=== PATIENT | female | born 1960 | race Caucasian/White ===

== ENCOUNTER 2017-10-05 07:01 | Day surgery (SDC) | END 2017-10-05 21:35 | disposition home or self-care (01) | DX: K57.30 Diverticulosis of large intestine without perforation or abscess without bleeding (principal); K64.8 Other hemorrhoids; Z86.010 Personal history of colon polyps | CPT/HCPCS: 45378; J2250; J3010; Z7610 ==

== ENCOUNTER 2019-04-13 07:28 | Day surgery (SDC) | payer OTHER ==
[2019-04-13] VITALS (16 sets, daily range): BP systolic 111–129; BP diastolic 68–77; PULSE 60–90; RESP 15–21; Ht 160 cm; Wt 79.8 kg
[~2019-04-13] VITALS: Ht 160 cm; Wt 79.8 kg
[~2019-04-13 07:28] MED LIST: CEFAZOLIN 2 GM/50 ML (PMX) 50 ML IVPB ONE; SOD CHLORIDE 0.9% 1,000 ML IV SCH
[2019-04-13] MEDS ORDERED: IBUP800T48 PO (08:40)
[2019-04-13] MEDS ORDERED: ASPI1TAB55 PO (08:40)
--- NOTE | 2019-04-13 10:14 | PREAC ---
Date/Time of Note Date/Time of Note DATE: 04/13/19 TIME: 10:13 Anesthesia Eval and Record Evaluation Time Pre-Procedure Interview DATE: 04/13/19 TIME: 10:13 Age 58 Sex female NPO: 8 hrs Preoperative diagnosis left upper chest mass Planned procedure excision left upper chest mass Past Medical History Past Medical History: Includes Endo: Other (thyroid nodules) Neuro: Other (migraines) GI: Obesity Surgery & Anesthesia Issues No known issue Meds Anticoagulation: No Beta Francine within 24 hr: No Reason Beta Francine not given: Pt. not on B-Francine Reported Medications Aspirin/Acetaminophen/Caffeine (MIGRAINE RELIEF CAPLET) 1 Each Tablet, 1 TAB PO DAILY PRN for PAIN, TAB 04/13/19 Ibuprofen* (Motrin*) 800 Mg Tab, 800 MG PO Q6H PRN for PAIN, TAB 04/13/19 Discontinued Reported Medications [None] No Conflict Check 07/01/15 Meds reviewed: Yes Allergies Coded Allergies: Sulfa (Sulfonamide Antibiotics) (Verified Allergy, Intermediate, RASH, 04/13/19) Allergies Reviewed: Yes Labs/Studies Labs Reviewed: Reviewed by anesthesiologist test: N/A Studies: ECG, CXR Pre-procedure Exam Last vitals Vital Signs Date Temp Pulse Resp B/P (MAP) Pulse Ox O2 O2 Flow FiO2 Time Delivery Rate 04/13/19 98.8 60 16 129/77 99 Room Air 08:43 (94) Airway: Adequate mouth opening, Adequate thyromental dist Mallampati: Mallampati II Teeth: Normal Lung: Normal Heart: Normal ASA Physical Status ASA physical status: 2 Emergency: None Planned Anesthetic General/MAC: ETT Planned Pain Management Parenteral pain med, Local by surgeon Pre-operative Attestations Prior to commencing anesthesia and surgery, the patient was re-evaluated, there was verification of: *The patient's identity *The results of appropriate recent lab work and preoperative vital signs *The above evaluation not changing prior to induction *Anesthetic plan, risk benefits, alternative and complications discussed with patient/family; questions answered; patient/family understands, accepts and wishes to proceed. AYDEN SANCHEZ April 13, 2019 10:14
[2019-04-13] MEDS ORDERED: LIDOCAINE 2% (SDV) 5 ML INJ ONE (10:20)
[2019-04-13] MEDS ORDERED: SUCCINYLCHOLINE CHLORIDE 100 MG/5 ML SYG IV ONE (10:20)
[2019-04-13] MEDS ORDERED: FENTAnyl 50 MCG/ML VIAL ONE (10:20)
[2019-04-13] MEDS ORDERED: CEFAZOLIN 1 GM INJ ONE (10:20)
[2019-04-13] MEDS ORDERED: FAMOTIDINE 20 MG INJ ONE (10:40)
[2019-04-13] MEDS ORDERED: DEXAMETHASONE 4 MG/ML 5 ML INJ ONE (10:40)
[2019-04-13] MEDS ORDERED: METOCLOPRAMIDE 10 MG INJ ONE (10:40)
[2019-04-13] MEDS ORDERED: ONDANSETRON 4 MG INJ ONE (10:40)
[2019-04-13] MEDS ORDERED: BUPIVACAINE 0.5%/EPI (SDV) 30 ML INJ ONE (10:54)
[2019-04-13] MEDS ORDERED: ONDANSETRON 4 MG INJ IV PRN (11:00)
[2019-04-13] MEDS ORDERED: FENTAnyl 50 MCG/ML VIAL IV PRN ×3 (11:00)
[2019-04-13] MEDS ORDERED: MEPERIDINE 25 MG INJ IV PRN (11:00)
[2019-04-13] MEDS ORDERED: OXYCODONE/ACETAMINOPHEN (5/325) TAB PO PRN ×2 (11:00)
--- NOTE | 2019-04-13 11:00 | SIPON ---
Date/Time of Note Date/Time of Note DATE: 04/13/19 TIME: 10:59 Operative Report Preoperative Diagnosis Malignant skin lesion left anterior thorax Postoperative Diagnosis Same Operation/Procedure Performed Wide local excision of malignant skin lesion left anterior thorax with local skin flap advancement closure Surgeon see signature line assistant paralegal Dr Mac Anesthesia: general Estimated blood loss: 0 - 10 ml's Transfusion Required none Specimen Malignant skin lesion left anterior thorax Grafts/Implants none Complications none FTIZ ROCKWELL MD April 13, 2019 11:00
--- NOTE | 2019-04-13 11:47 | OPR ---
DATE OF OPERATION: 04/13/2019 PREOPERATIVE DIAGNOSIS: Malignant skin lesion, left anterior thorax. POSTOPERATIVE DIAGNOSIS: Malignant skin lesion, left anterior thorax. OPERATION PERFORMED: Wide local excision of malignant skin lesion the left anterior thorax with loca l skin flap advancement closure. ANESTHESIA: General. ANESTHESIOLOGIST: Nurse asphalt coater, Jorge Santamaria. 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 She was refer red for definitive surgical excision. She was counseled as to need for wide local excision with loca l skin flap advancement closure. She consented and was scheduled for surgery. DESCRIPTION OF PROCEDURE: The patient was brought to the operating theater, placed under general ane sthesia. The left anterior thorax was prepped and draped in usual sterile fashion. An elliptical in cision was demarcated with marking pen widely around the palpable lesion. The length of the ellipse was approximately 6 cm and width was approximately 2.5 cm to 3 cm. It was then carried out with 15 b lade scalpel. Subcutaneous tissue was dissected with cautery. The skin was then excised in full thi ckness fashion from the underlying subcutaneous fat using cautery. It was oriented and sent for perm anent pathologic analysis. Wound was irrigated. Minimal residual bleeding was controlled with caute ry, and the inferior and superior skin flaps were then created to facilitate closure. This was also accomplished with cautery. The skin flaps were then rotated together and held in place with a towel clip and final skin approximation then took place with 2-0 nylon sutures in vertical mattress fashion . A sterile dressing was applied. The patient tolerated the procedure well. The estimated blood lo ss was 10 mL. There were no complications and the patient was transported in stable condition to rec overy room. Dictated By: FERDINAND GUILLORY MD TL/NTS Conf#: [id number] DID#: [id number] CC: KELLY MAC MD;*EndCC*
--- NOTE | 2019-04-13 12:47 | RADRPT ---
Vent Rate: 57 bpm RR Interval: 1060 msec FL Interval: 174 msec QRS Duration: 87 msec QT Interval: 432 msec QTC Interval: 420 msec P-R-T Henley: -27 - -20 - 28 degrees Sinus rhythm...normal P axis, V-rate 50- 99 Electronically Signed By: Godwin Del Rio
--- NOTE | 2019-04-13 13:09 | PAC ---
Date/Time of Note Date/Time of Note DATE: 04/13/19 TIME: 13:09 Post-Anesthesia Notes Post-Anesthesia Note Last documented vital signs Vital Signs Date Temp Pulse Resp B/P (MAP) Pulse Ox O2 O2 Flow FiO2 Time Delivery Rate 04/13/19 97.0 72 16 111/68 96 Room Air 12:20 (82) 04/13/19 8.0 11:25 Activity: WNL Respiratory function: WNL Cardiovascular function: WNL Mental status: Baseline Pain reasonably controlled: Yes Hydration appropriate: Yes Nausea/Vomiting absent: Yes AYDEN SANCHEZ April 13, 2019 13:09
== END 2019-04-13 12:50 | disposition home or self-care (01) ==
LOC: SDS 07:28
PROVIDERS: ATTEND Surgery Surgical Oncology
DX: C44.509 Unspecified malignant neoplasm of skin of other part of trunk (principal); E66.9 Obesity, unspecified; R94.31 Abnormal electrocardiogram [ECG] [EKG]
CPT/HCPCS: 14000; 71045; 93005; J0690; J1100; J2405; J2765; J3010; Z7610